=== PATIENT | female | born 1950 | race Caucasian/White ===

== ENCOUNTER → 2024-04-07 | Outpatient (CLI) | payer MEDICARE, SELFPAY ==
--- NOTE | 2024-04-07 13:30 | XR_ITS ---
Examination: Screening digital mammography, bilateral Computer aided detection 3-D breast Tomosynthesis, bilateral Date and time of exam: April 07, 2024 1317 hours Compared to mammograms dated to May 27, 2015 Indication: Screening Technique: Nonmagnified MLO, CC views of the breasts to been obtained, reconstructed from 3-D Tomosynthesis images. R2 computer aided detection program utilized for evaluation of suspicious masses and/or abnormal calcifications. 3-D Tomosynthesis images obtained. Findings: Scattered areas of fibroglandular density Stable focal asymmetry upper right breast Benign calcifications No interval suspicious masses Impression: BI-RADS category II: Benign Findings. Recommend 1 year follow-up mammogram.
--- NOTE | 2024-04-07 13:45 | XR_ITS ---
Examination: Bone densitometry Date and time of exam:April 07, 2024 1314 hours INDICATIONS: Menopause age 55 vitamin D 10 years Technique: Lumbar spine and hip total bone mineralization values of an calculated. Peak reference and age match control results have been displayed. Findings: Lumbar spine total bone mineralization is1.199 gm/cm2. This is 2.0 standard deviations above peak reference. This is 4.1 standard deviations above age-matched controls. Hip total bone mineralization is 1.070 gm/cm2 This is 1.0 standard deviations above peak reference. This is 2.6 standard deviations above age-matched controls Impression: There is normal mineralization based on lumbar spine measurements. There is normal mineralization based on hip measurements Lumbar mineralization is increase 0.7% compared with December 09, 2018 Hip mineralization is increase 14.9% compared with December 09, 2018
== END | disposition home or self-care (01) ==
PROVIDERS: PCP Family Medicine; Referring Provider Family Medicine; Visit Provider Family Medicine
DX: Z12.31 Encounter for screening mammogram for malignant neoplasm of breast (principal); R92.323 Mammographic fibroglandular density, bilateral breasts; R92.1 Mammographic calcification found on diagnostic imaging of breast; M81.0 Age-related osteoporosis without current pathological fracture
CPT/HCPCS: 77063; 77067; 77080

== ENCOUNTER → 2024-04-22 | Outpatient (CLI) | payer MEDICARE, SELFPAY ==
--- NOTE | 2024-04-22 08:30 | XR_ITS ---
Examination: CT lumbar spine, without contrast. 2-D sagittal reconstructions. 2-D coronal reconstructions. 3-D reconstructions. Date and time of exam:April 22, 2024 0843 hours Comparison June 14, 2022 INDICATIONS: Low back pain beginning 6 years ago CTDI: vol (mGy):23.2 DLP: (mGycm):636 Technique: Multiple 1.25 mm axial sections of the lumbar spine without intravenous contrast have been obtained. 2-D sagittal and coronal reconstructions have been obtained. 3-D reconstructions have been obtained. Low dose protocols were performed. One or more of the following dose reduction techniques were used; automated exposure control, adjustment of the mA and/or KV according to patient size, use of iterative reconstruction technique. Findings: Severe osteopenia Transpedicular lumbar fusion L3-L5, 3 mm anterolisthesis 3 on L4 No lumbar fracture Lumbar pedicles lamina transverse processes intact with laminectomies L3-L4 L5-S1 2 mm calcified central lumbar disc bulge L4-L5 no disc protrusion L3-L4 no disc protrusion L2-L3 no disc protrusion L1-L2 no disc protrusion IMPRESSION: Transpedicular lumbar fusion L3-L5 with laminectomies No significant acquired spinal stenosis
== END | disposition home or self-care (01) ==
LOC: CCTX 08:07
PROVIDERS: Referring Provider Orthopaedic Surgery; Visit Provider Orthopaedic Surgery
DX: M43.26 Fusion of spine, lumbar region (principal); G89.4 Chronic pain syndrome
CPT/HCPCS: 72131